=== PATIENT | male | born 1975 | race Caucasian/White ===

== ENCOUNTER 2023-10-03 15:17 | Emergency (ER) | payer OTHER ==
[~2023-10-03] VITALS: Ht 188 cm; Wt 81.6 kg
[2023-10-03 15:25] VITALS: BP 123/84; PULSE 56; RESP 18; TEMP 97.8; O2SAT 95
[2023-10-03 18:47] VITALS: BP 123/84; PULSE 56; RESP 18; TEMP 97.8; O2SAT 95
== END 2023-10-03 18:47 | disposition home or self-care (01) ==
LOC: MED 15:17
DX: K94.23 Gastrostomy malfunction (principal); R13.10 Dysphagia, unspecified; Z86.73 Personal history of transient ischemic attack (TIA), and cerebral infarction without residual deficits; Z79.899 Other long term (current) drug therapy; Z79.1 Long term (current) use of non-steroidal anti-inflammatories (NSAID)
CPT/HCPCS: 43762; 71045; 74018; 99284; Q0092; Q9967